=== PATIENT | female | born 1940 | race Caucasian/White ===

== ENCOUNTER 2018-04-22 21:24 | Inpatient (IN) | END 2018-04-24 18:58 | disposition home or self-care (01) | DRG 342 ==

== ENCOUNTER 2018-11-04 10:59 | Observation (INO) | payer BC ==
[2018-11-04] VITALS (7 sets, daily range): BP systolic 114–148; BP diastolic 55–65; PULSE 61–81; RESP 16–19; Ht 149.9 cm; Wt 50.0 kg
[~2018-11-04] VITALS: Ht 149.9 cm; Wt 50.0 kg
[~2018-11-04 10:59] MED LIST: ALLO100T PO; AMLO-145 PO; ASPI-831 GTB; ASPI-903 PO; CHOL200073 PO; CHOL4PAC PO; FLUT16SP17 NASAL; GLIM4TAB PO; GLYB1TAB3 PO; HYDR-4011 PO; LABE300T2 PO; LANT3I SC; LEVO88TA36 PO; LIPA1CAP45 PO; LORA10CA; LOSA25TA12 PO; MAGN400T28 PO; METH500T PO; METO-448; OMEP40CA6 PO; SIMV20TA2 PO; SPIR100T4 PO
[2018-11-04] MEDS ORDERED: SOD CHLORIDE 0.9% 500 ML IV STA (11:29)
[2018-11-04] MEDS ORDERED: SPIR25TA PO (11:29)
[2018-11-04] MEDS ORDERED: ATOR10TA65 PO (11:30)
[2018-11-04] MEDS ORDERED: LABE300T2 PO (11:31)
--- NOTE | 2018-11-04 12:47 | ERD ---
ER Documentation Chief Complaint Chief Complaint Pt. BETTY family with c/o syncopal episode today. HPI 78-year-old female presents to the emergency department after passing out. According to the family, patient was in her usual state of health until the last 2 or 3 weeks at which time she had diarrhea. She has begun having weight loss along with the diarrhea and felt dehydrated. Today she felt generally weak and had to hold onto the wall after she was having a bowel movement and then passed out. She had no chest pain or shortness of breath, no headache, focal weakness or numbness. On arrival, she reports no chest pain or shortness of breath at this time. ROS All systems reviewed and are negative except as per history of present illness. Medications Home Meds Reported Medications Labetalol Hcl* (Labetalol Hcl*) 300 Mg Tablet, 300 MG PO BID, TAB 11/04/18 Atorvastatin Calcium (Atorvastatin Calcium) 10 Mg Tablet, 10 MG PO QHS, #30 TAB 11/04/18 Spironolactone* (Aldactone*) 25 Mg Tablet, 25 MG PO DAILY, #30 TAB 11/04/18 Peqyum-Qqeayklm-Zedcnjo* (Fabian DR* 36,000) 36,000 L-114,000-180,000 Unit Capsule.dr, 1 CAP PO WITH MEALS, CAP 04/23/18 Allopurinol* (Allopurinol*) 100 Mg Tablet, 100 MG PO DAILY, TAB 04/23/18 Cholecalciferol (Vitamin D3) (VITAMIN D-3) 2,000 Unit Capsule, 2000 UNIT PO DAILY, CAP 04/23/18 Losartan Potassium* (Losartan Potassium*) 25 Mg Tablet, 25 MG PO BID, TAB 04/23/18 Glimepiride* (Glimepiride*) 4 Mg Tablet, 4 MG PO WITH BREAKFAST DINNE, TAB 04/23/18 Fluticasone Propionate* (Fluticasone Propionate* Nasal) 50 Mcg/Quebeck - 16 Gm [place].susp, 1 SPRAY NASAL DAILY, #1 BOTTLE TO EACH NOSTRIL 04/23/18 Magnesium Oxide* (Magnesium Oxide*) 400 Mg Tablet, 800 MG PO DAILY, TAB 04/23/18 Omeprazole* (Omeprazole*) 40 Mg Capsule.dr, 40 MG PO DAILY, #30 CAP 04/23/18 Insulin Glargine* (Lantus*) 100 Unit/Ml Soln, 10 UNIT SC QHS, #1 VIAL 04/22/18 Aspirin (Aspirin) 81 Mg Chew, 81 MG GTB DAILY 01/31/13 Discontinued Reported Medications Spironolactone* (Spironolactone*) 100 Mg Tablet, 25 MG PO DAILY, TAB 04/23/18 Cholestyramine/Aspartame (Cholestyramine Light Packet) 4 Gm Powd.pack, 4 GM PO BID 04/23/18 Labetalol Hcl* (Labetalol Hcl*) 300 Mg Tablet, 300 MG PO BID, TAB 04/23/18 Aspirin* (Aspirin* Chew) 81 Mg Tab.chew, 81 MG PO DAILY, TAB.CHEW 04/22/18 Loratadine* (Claritin*) 10 Mg Capsule, DAILY 01/31/13 Metoprolol Tartrate* (Lopressor*) 25 Mg Tab, BID 01/31/13 Levothyroxine Sodium (Levothroid) 88 Mcg Tablet, 100 MCG PO DAILY 01/31/13 Glyburide, Micro-Metformin Hcl (Glyburid-Metformin) 1 Tab Tablet, 1 TAB PO BID 01/31/13 Simvastatin (Simvastatin) 20 Mg Tablet, 20 MG PO DAILY 01/31/13 Amlodipine Besylate* (Amlodipine Besylate*) 5 Mg Tablet, 5 MG PO BID 01/31/13 Discontinued Scripts Hydrocodone/Acetaminophen (Foss 5-325 Tablet) 1 Each Tablet, 1 EACH PO Q4 for pain, #30 TAB Prov:LEIGHA MONZON 04/24/18 Methocarbamol* (Robaxin*) 500 Mg Tab, 500 MG PO Q8, #10 TAB Prov:KIAN MOHAMUD DO 11/15/15 Allergies Allergies: Coded Allergies: benazepril (Verified Allergy, Unknown, 11/04/18) felodipine (Verified Allergy, Unknown, 11/04/18) metformin (Verified Allergy, Unknown, 11/04/18) pioglitazone (Verified Allergy, Unknown, 11/04/18) prochlorperazine (Verified Allergy, Unknown, 11/04/18) rosiglitazone (Verified Allergy, Unknown, 11/04/18) sitagliptin (Verified Allergy, Unknown, 11/04/18) valsartan (Verified Allergy, Unknown, 11/04/18) PMhx/Soc History of Surgery: Yes (thyroidectomy 1996, hysterectomy 1978, [place]) Anesthesia Reaction: No Hx Neurological Disorder: No Hx Respiratory Disorders: No Hx Cardiac Disorders: Yes (HTN) Hx Psychiatric Problems: No Hx Miscellaneous Medical Probl: Yes (DM) Hx Alcohol Use: No Hx Substance Use: No Hx Tobacco Use: No Smoking Status: Never smoker FmHx Supportive family at the bedside. Otherwise noncontributory family history Physical Exam Vitals Vital Signs Date Temp Pulse Resp B/P (MAP) Pulse Ox O2 O2 Flow FiO2 Time Delivery Rate 11/04/18 96.8 68 20 111/57 100 Nasal 2.0 12:23 (75) Cannula 11/04/18 96.0 69 22 124/66 100 11:29 (85) Physical Exam GENERAL: Frail, elderly female in no distress HEENT: Pupils equal, round, and reactive to light. EOMI. There is no scleral ic terus. NECK: C-spine is soft and supple, there is no meningismus. There is no cervical lymphadenopathy. LUNGS: Clear to auscultation bilaterally. There are no rales, wheezes or rhonchi. HEART: Regular rate and rhythm, no murmurs, clicks, rubs or gallops. ABDOMEN: Soft, non-tender, non-distended. There are bowel sounds in all four quadrants. No rebound or guarding. EXTREMITIES: There is no peripheral cyanosis or edema. No focal swelling or erythema. NEURO: The patient moves all four extremities with 5/5 strength. Cranial nerves II - XII are intact. Normal gait. Alert and oriented SKIN: There is no apparent rash or petechiae. HEME/LYMPHATIC: There is no evidence of excessive bruising or lymphedema. PSYCHIATRIC: The patient does not appear anxious or depressed. Result Diagram: 11/04/18 1120 11/04/18 1120 Results 24 hrs Laboratory Tests Test 11/04/18 11:20 11/04/18 11:42 White Blood Count 6.1 10^3/ul Red Blood Count 3.77 10^6/ul Hemoglobin 10.9 g/dl Hematocrit 33.1 % Mean Corpuscular Volume 87.8 fl Mean Corpuscular Hemoglobin 28.9 pg Mean Corpuscular Hemoglobin Concent 32.9 g/dl Red Cell Distribution Width 13.5 % Platelet Count 214 10^3/UL Mean Platelet Volume 10.6 fl Immature Granulocytes % 0.200 % Neutrophils % 65.8 % Lymphocytes % 24.8 % Monocytes % 6.1 % Eosinophils % 2.3 % Basophils % 0.8 % Nucleated Red Blood Cells % 0.0 /100WBC Immature Granulocytes # 0.010 10^3/ul Neutrophils # 4.0 10^3/ul Lymphocytes # 1.5 10^3/ul Monocytes # 0.4 10^3/ul Eosinophils # 0.1 10^3/ul Basophils # 0.1 10^3/ul Nucleated Red Blood Cells # 0.0 10^3/ul Sodium Level 140 mmol/L Potassium Level 4.4 mmol/L Chloride Level 105 mmol/L Carbon Dioxide Level 24 mmol/L Anion Gap 11 Blood Urea Nitrogen 22 mg/dl Creatinine 1.05 mg/dl Est Glomerular Filtrat Rate mL/min mL/min Glucose Level 234 mg/dl Calcium Level 9.5 mg/dl Troponin I < 0.012 ng/ml Bedside Glucose 277 mg/dL Current Medications Medications Dose Sig/Andrés Start Time Status Last (Trade) Ordered Route PRN Stop Time Admin Dose Reason Admin Sodium 500 ml @ Q1H STAT 11/04/18 DC 11/04/18 Chloride 500 mls/hr IV 11:29 11:38 11/04/18 12:28 Procedures/MDM Patient was taken to a room, seen and evaluated. Comfort measures were initiated. Diagnostic tests were ordered and reviewed. 3 LEAD RHYTHM STRIP: Normal sinus rhythm without ectopy EK lead EKG reviewed by myself: Normal Sinus Rhythm Normal [place] and intervals No ST elevation, depression, or T wave inversion Impression: Normal EKG RADIOLOGY: Reviewed with the radiologist CONSULTATION: Hospitalist was notified for admission REEVALUATION: 1245: Diagnostic tests were appreciated and discussed with the family decision was made to admit for observation MEDICAL DECISION MAKIN-year-old female presents after syncopal episode. Her syncopal episode is likely related to dehydration from the diarrhea as well as her medications. Her EKG and troponin are reassuring. However, given her age and her comorbid conditions, she will be admitted for observation. Departure Diagnosis: Primary Impression: Syncope Condition: JERONIMO Brand Nov 04, 2018 12:47
--- NOTE | 2018-11-04 13:48 | HP ---
Date/Time of Note Date/Time of Note DATE: 11/04/18 TIME: 13:48 Assessment/Plan VTE Prophylaxis Pharmacological prophylaxis: NA/contraindicated Pharm contraindication: other (Remote history of hemorrhagic infarct. Iniatate if her CT scan is negative for any bleeding.) Lines/Catheters [facility] Saline Lock Assessment/Plan Hospital Course 78-year-old female with comorbidities including hypertension, diabetes mellitus type 2, hypothyroidism, anemia, and intracranial hemorrhage. The patient had an unwitnessed syncopal episode at home. The patient will be admitted to inpatient setting for further treatment and evaluation. 1. Syncope. -Etiology unclear. -Obtain a brain CT scan to evaluate for any underlying structural findings specifically any bleed since the patient has a remote history of intracranial bleeding and the patient was on aspirin. -Obtain orthostatic vital signs. -Evaluate for cardiac causes including ruling out ACS and obtain a 2D echocardiogram with bubble study.. -Obtain orthostatic vital signs. -Hold antihypertensives for permissive hypertension until stroke is ruled out. 2. Essential hypertension. -Hold antihypertensives until stroke is ruled out. 3. Diabetes mellitus type 2. -Obtain hemoglobin A1c. -Start the patient on sliding scale insulin along with pre-meal insulin and basal insulin. 4. Hypothyroidism. -Resume Synthroid. 5. Normocytic anemia. -Most probably anemia of chronic disease -Monitor H&H closely. Plan: The patient will be admitted to inpatient telemetry floor. The patient will be started on a diet. The patient will be started on DVT prophylaxis (B/L SCDs). The patient will remain a full code. Activities will be with assist. The rest of the patient's management will be based on the clinical course, inputs from consultants, and the results of diagnostic studies. Based on the patient's clinical presentation, she most probably requires at le ast 1 midnight's stay for further management and evaluation of her clinical presentation. The patient was seen in collaboration with Dr. Heredia. Result Diagram: 11/04/18 1120 11/04/18 1120 Results 24hrs Laboratory Tests Test 11/04/18 11:20 11/04/18 11:42 White Blood Count 6.1 Red Blood Count 3.77 L Hemoglobin 10.9 L Hematocrit 33.1 L Mean Corpuscular Volume 87.8 Mean Corpuscular Hemoglobin 28.9 L Mean Corpuscular Hemoglobin Concent 32.9 Red Cell Distribution Width 13.5 Platelet Count 214 Mean Platelet Volume 10.6 H Immature Granulocytes % 0.200 Neutrophils % 65.8 Lymphocytes % 24.8 Monocytes % 6.1 Eosinophils % 2.3 Basophils % 0.8 Nucleated Red Blood Cells % 0.0 Immature Granulocytes # 0.010 Neutrophils # 4.0 Lymphocytes # 1.5 Monocytes # 0.4 Eosinophils # 0.1 Basophils # 0.1 Nucleated Red Blood Cells # 0.0 Sodium Level 140 Potassium Level 4.4 Chloride Level 105 Carbon Dioxide Level 24 Anion Gap 11 Blood Urea Nitrogen 22 H Creatinine 1.05 H Est Glomerular Filtrat Rate mL/min Glucose Level 234 H Calcium Level 9.5 Troponin I < 0.012 Bedside Glucose 277 H HPI/ROS Admit Date/Time Admit Date/Time Nov 04, 2018 at 12:48 Hx of Present Illness Reason for admission: Syncope. Consultants 1 Valerie Cee MD, Neurology. This is a 78-year-old female with past medical history of hypertension, diabetes mellitus type 2, hypothyroidism, anemia, and intracranial hemorrhage in 2011. The patient was in her normal state of health as per the family. Patient took her morning medications and suddenly she felt dizzy. The patient also verbalized visual disturbances. Later she remembers her lying down on the floor. The family member (the patient's ) found her lying on the floor trying to crawl to the restroom covered in feces. There was no reported foaming in the mouth or seizure-like activities. The patient denied any obvious injuries although she was complaining of bilateral pulsating headache in the temporal area. As per the patient's family member, she broke the coffee table because of the fall. The patient's family members found the patient to be cold and clammy and sweating. The patient was complaining of chills. There was also reported nonbilious nonbloody vomiting. The patient denied any abdominal pain. She denied any chest pain or dyspnea. In the emergency room, the patient's vital signs were stable. The patient's blood sugar in the emergency room was 234. The patient was hypothermic with a temperature of 96 in the emergency room. ROS Constitutional: chills Eyes: visual change ENT: no complaints Respiratory: no complaints Cardiovascular: no complaints Gastrointestinal: diarrhea, nausea, vomiting Genitourinary: no complaints Musculoskeletal: no complaints Skin: no complaints Neurologic: headache, other (Pulsations on both sides of the head.) Endocrine: no complaints Lymphatic: no complaints Psychological: no complaints Immunologic: no complaints PMH/Family/Social Past Medical History 1. Hypertension. 2. Diabetes mellitus type 2. 3. Hypothyroidism. 4. Anemia. 5. Intracranial hemorrhage in 2011. Coded Allergies: benazepril (Verified Allergy, Unknown, 11/04/18) felodipine (Verified Allergy, Unknown, 11/04/18) metformin (Verified Allergy, Unknown, 11/04/18) pioglitazone (Verified Allergy, Unknown, 11/04/18) prochlorperazine (Verified Allergy, Unknown, 11/04/18) rosiglitazone (Verified Allergy, Unknown, 11/04/18) sitagliptin (Verified Allergy, Unknown, 11/04/18) valsartan (Verified Allergy, Unknown, 11/04/18) Past Surgical History 1. Appendectomy. 2. Thyroidectomy. 3. Hysterectomy. Past Surgical Hx: other Family History Significant Family History: no pertinent family hx Social History The patient lives at home with her family. Alcohol Use: none Smoking Status: Never smoker Drug Use: none Exam/Review of Systems Vital Signs Vitals Vital Signs Date Temp Pulse Resp B/P (MAP) Pulse Ox O2 O2 Flow FiO2 Time Delivery Rate 11/04/18 65 20 113/59 100 Nasal 2.0 13:25 (77) Cannula 11/04/18 96.8 12:23 Exam Exam General: Adequately build 78 year-old female lying in bed in no apparent distress. HEENT: Normocephalic, atraumatic. Eyes: Anicteric sclerae, conjunctivae clear. ENT: Nasal septum midline, oral mucosa is dry. Neck supple, no JVD noticed. Respiratory: Bilaterally clear breath sounds. No use of accessory muscles of respiration. No adventitious breath sounds. Cardiovascular: S1, S2 heard. Regular rate and rhythm. Abdomen: Soft, nontender, and nondistended. Bowel sounds positive in all 4 quadrants. Genitourinary: Deferred. Extremities: No cyanosis, no clubbing, no edema. Peripheral pulses palpable. Neurologic: Cranial nerves II through XII grossly intact. The patient is awake, alert, and oriented. Equal strength in all 4 extremities. No slurred speech. No facial asymmetry. Skin: Normal skin turgor. No skin rashes. Additional Comments CXR IMPRESSION: 1. No evidence of acute cardiopulmonary disease. LAWRENCE LEVI NP Nov 04, 2018 13:48
[2018-11-04] MEDS ORDERED: GLUCOSE GEL 15 GRAM TUBE PO PRN ×2 (14:30)
[2018-11-04] MEDS ORDERED: NACL 0.9% 3 ML SYG IV SCH (14:30)
[2018-11-04] MEDS ORDERED: ACETAMINOPHEN 325 MG TAB PO PRN (14:30)
[2018-11-04] MEDS ORDERED: DEXTROSE 50% 50 ML SYRINGE IV PRN ×2 (14:30)
[2018-11-04] MEDS ORDERED: ONDANSETRON 4 MG INJ IV PRN (14:30)
[2018-11-04] MEDS ORDERED: GLUCAGON 1 MG INJ IM PRN (14:30)
[2018-11-04] MEDS ORDERED: GLUCOSE GEL 15 GRAM TUBE BUCCAL PRN (14:30)
[2018-11-04] MEDS: INSULIN ASPART [NOVOLOG] 3 ML PEN SC SCH ×3 (18:21→20:44)
[2018-11-04] MEDS: ATORVASTATIN 10 MG TAB PO SCH (20:43)
[2018-11-04] MEDS: INSULIN GLARGINE [LANTus] (100 UNITS/ML) SYG SC SCH ×2 (20:45→21:41)
[2018-11-05] VITALS (14 sets, daily range): BP systolic 106–143; BP diastolic 55–68; PULSE 64–80; RESP 17–18
[2018-11-05] MEDS: INSULIN ASPART [NOVOLOG] 3 ML PEN SC SCH ×7 (08:00→20:06)
[2018-11-05] MEDS: CHOLECALCIFEROL 2,000 UNIT CAP PO SCH (08:26)
[2018-11-05] MEDS: FLUTICASONE 0.05% 16 GM NAS SPRAY NASAL SCH (08:26)
--- NOTE | 2018-11-05 08:57 | CONS ---
Assessment/Plan Assessment/Plan Hospital Course 78 F c/ reported Hx of prior ICH, HTN, and other comorbidities...who presents for evaluation of transient LOC w/ fecal incontinence...for which neurology is consulted.. The clinical picture raises concern for syncope.. Seizure is additionally considered... Acute ischemia is not yet excluded.. CTH is most notable for a chronic occipital infarction...which could certainly serve as a seizure focus.. CUS/CXR - unremarkable P: MRI brain for further characterization EEG to evaluation for epileptiform activity Orthostatic vitals Add UA Defer AED Tx for now Ativan iv prn prolonged seizure of cluster Continue Lipitor for secondary stroke prevention; resume asa daily for the same.. Other medical workup and management per primary Will follow Consultation Date/Type/Reason Admit Date/Time Nov 04, 2018 at 12:48 Type of Consult Neurology Reason for Consultation LOC w/ fecal incontinence Requesting Provider: LAWRENCE LEVI NP Date/Time of Note DATE: 11/05/18 TIME: 08:48 Hx of Present Illness This is a 78-year-old female with past medical history of hypertension, diabetes mellitus type 2, hypothyroidism, anemia, and intracranial hemorrhage in 2011. The patient was in her normal state of health as per the family. Patient took her morning medications and suddenly she felt dizzy. The patient also verbalized visual disturbances. Later she remembers her lying down on the floor. The family member (the patient's ) found her lying on the floor trying to crawl to the restroom covered in feces. There was no reported foaming in the mouth or seizure-like activities. The patient denied any obvious injuries although she was complaining of bilateral pulsating headache in the temporal area. As per the patient's family member, she broke the coffee table because of the fall. The patient's family members found the patient to be cold and clammy and sweating. The patient was complaining of chills. There was also reported nonbilious nonbloody vomiting. The patient denied any abdominal pain. She denied any chest pain or dyspnea. In the emergency room, the patient's vital signs were stable. The patient's blood sugar in the emergency room was 234. The patient was hypothermic with a temperature of 96 in the emergency room. 12 PT ROS neg, aside from that as noted in HPI Exam/Review of Systems Exam Vitals Vital Signs Date Temp Pulse Resp B/P (MAP) Pulse Ox O2 O2 Flow FiO2 Time Delivery Rate 11/05/18 98.4 67 18 120/58 96 07:17 (78) 11/05/18 Nasal 03:53 Cannula 11/04/18 2.0 20:10 Intake and Output 11/04/18 11/04/18 11/05/18 1515:00 23:00 07:00 IntakeIntake Total 300 ml BalanceBalance 300 ml Exam PE: Gen Appearance: No Apparent Distress HEENT: Normocephalic Cardiovascular: Regular rate Abdomen: Soft Extremities: Dry NE: The patient was alert and oriented. Language was normal. Fund of knowledge was normal. Pupils were equal and reactive to light. There was no afferent pupillary defect. Visual yancey were normal. Funduscopic examination was limited. Extra-ocular movements were full. Ptosis was absent. There was no nystagmus. Facial sensation was normal. Face was symmetric with normal strength. Hearing was intact. Palate movements were normal. Neck strength was normal. There was normal tongue bulk and speed of movement. Tone was normal. Muscle bulk was normal. I did not see fasciculations. Arms and legs were strong. Vibration sensation was normal. Temperature and pinprick sensation was normal. Rapid alternating movements were normal. There was no dysmetria. There was no intention tremor. Gait was deferred due to bedrest. Arm and leg reflexes were symmetric. Ann's sign was absent. Plantar responses were flexor. Results Result Diagram: 11/05/188 11/05/18 0408 Results 24hrs Laboratory Tests Test 11/04/18 11:20 11/04/18 11:42 11/04/18 14:07 11/04/18 16:06 White Blood Count 6.1 Red Blood Count 3.77 L Hemoglobin 10.9 L Hematocrit 33.1 L Mean Corpuscular 87.8 Volume Mean Corpuscular 28.9 L Hemoglobin Mean Corpuscular 32.9 Hemoglobin Concent Red Cell 13.5 Distribution Width Platelet Count 214 Mean Platelet Volume 10.6 H Immature 0.200 Granulocytes % Neutrophils % 65.8 Lymphocytes % 24.8 Monocytes % 6.1 Eosinophils % 2.3 Basophils % 0.8 Nucleated Red Blood 0.0 Cells % Immature 0.010 Granulocytes # Neutrophils # 4.0 Lymphocytes # 1.5 Monocytes # 0.4 Eosinophils # 0.1 Basophils # 0.1 Nucleated Red Blood 0.0 Cells # Sodium Level 140 Potassium Level 4.4 Chloride Level 105 Carbon Dioxide Level 24 Anion Gap 11 Blood Urea Nitrogen 22 H Creatinine 1.05 H Est Glomerular Filtrat Rate mL/min Glucose Level 234 H Hemoglobin A1c 7.0 H Calcium Level 9.5 Troponin I < 0.012 < 0.012 B-Type Natriuretic 164 Peptide Ethyl Alcohol Level < 10.0 H Bedside Glucose 277 H Thyroid Stimulating 0.046 L Hormone (TSH) Free Thyroxine 2.38 Creatine Kinase 52 Creatine Kinase 1.8 Index Creatinine Kinase MB 0.92 (Mass) Test 11/04/18 16:55 11/04/18 17:30 11/04/18 19:52 11/04/18 20:42 Bedside Glucose 165 71 96 Urine Opiates Screen Negative Urine Barbiturates Negative Urine Amphetamines Negative Screen Urine Negative Benzodiazepines Screen Urine Cocaine Screen Negative Urine Cannabinoids Negative Test 11/04/18 21:59 11/05/18 04:08 11/05/18 08:04 Creatine Kinase 50 41 Creatine Kinase 1.2 1.5 Index Creatinine Kinase MB 0.61 0.60 (Mass) Troponin I < 0.012 < 0.012 White Blood Count 4.8 # Red Blood Count 3.39 L Hemoglobin 9.9 L Hematocrit 30.0 L Mean Corpuscular 88.5 Volume Mean Corpuscular 29.2 Hemoglobin Mean Corpuscular 33.0 Hemoglobin Concent Red Cell 13.5 Distribution Width Platelet Count 187 Mean Platelet Volume 10.0 Immature 0.000 L Granulocytes % Neutrophils % 55.9 Lymphocytes % 33.1 Monocytes % 7.5 Eosinophils % 2.7 Basophils % 0.8 Nucleated Red Blood 0.0 Cells % Immature 0.000 Granulocytes # Neutrophils # 2.7 Lymphocytes # 1.6 Monocytes # 0.4 Eosinophils # 0.1 Basophils # 0.0 Nucleated Red Blood 0.0 Cells # Prothrombin Time 13.5 Prothrombin Time 1.1 Ratio INR International 1.02 Normalized Ratio Activated 30.8 Partial Thromboplast Time Sodium Level 143 Potassium Level 4.5 Chloride Level 108 Carbon Dioxide Level 27 Anion Gap 8 Blood Urea Nitrogen 19 Creatinine 0.82 Est Glomerular Filtrat Rate mL/min Glucose Level 89 # Calcium Level 9.3 Phosphorus Level 5.0 H Magnesium Level 1.7 Triglycerides Level 169 H Cholesterol Level 106 LDL Cholesterol, 48 Calculated HDL Cholesterol 24 L Cholesterol/HDL 4.4 Ratio Bedside Glucose 97 Medications Medication Current Medications IV Flush (NS 3 ml) 3 ml PER PROTOCOL IV ; Start 11/04/18 at 14:30 Ondansetron HCl (Zofran Inj) 4 mg Q6H PRN IV NAUSEA/VOMITING; Start 11/04/18 at 14:30 Acetaminophen (Tylenol Tab) 650 mg Q6H PRN PO .PAIN 1-3 OR TEMP; Start 11/04/18 at 14:30 Atorvastatin Calcium (Lipitor) 10 mg QHS PO Last administered on 11/04/18 20:43; Admin Dose 10 MG; Start 11/04/18 at 21:00 Cholecalciferol (Vitamin D) 2,000 unit DAILY PO Last administered on 11/05/18 08:26; Admin Dose 2,000 UNIT; Start 11/05/18 at 09:00 Fluticasone Propionate (Flonase 0.05% Nasal) 1 spray DAILY NASAL Last administered on 11/05/18 08:26; Admin Dose 1 SPRAY; Start 11/05/18 at 09:00 Insulin Glargine (Lantus) 10 units QHS SC Last administered on 11/04/18 21:41; Admin Dose 10 UNITS; Start 11/04/18 at 21:00 Insulin Aspart (Novolog Insulin Pen) 3 unit WITH MEALS SC Last administered on 11/05/18 08:27; Admin Dose 3 UNIT; Start 11/04/18 at 18:00 Insulin Aspart (Novolog Insulin Pen) NOVOLOG *MILD* ALGORITHM WITH MEALS BEDTIME SC Last administered on 11/04/18at 18:24; Admin Dose 1 UNIT; Start 11/04/18 at 18:00 Miscellaneous Information 1 ea NOTE XX ; Start 11/04/18 at 14:30 Glucose (Glutose) 15 gm Q15M PRN PO DECREASED GLUCOSE; Start 11/04/18 at 14:30 Glucose (Glutose) 22.5 gm Q15M PRN PO DECREASED GLUCOSE; Start 11/04/18 at 14:30 Dextrose (D50w Syringe) 25 ml Q15M PRN IV DECREASED GLUCOSE; Start 11/04/18 at 14:30 Dextrose (D50w Syringe) 50 ml Q15M PRN IV DECREASED GLUCOSE; Start 11/04/18 at 14:30 Glucagon (Glucagen) 1 mg Q15M PRN IM DECREASED GLUCOSE; Start 11/04/18 at 14:30 Glucose (Glutose) 15 gm Q15M PRN BUCCAL DECREASED GLUCOSE; Start 11/04/18 at 14:30 Past Medical History reviewed Home Meds Reported Medications Labetalol Hcl* (Labetalol Hcl*) 300 Mg Tablet, 300 MG PO BID, TAB 11/04/18 Atorvastatin Calcium (Atorvastatin Calcium) 10 Mg Tablet, 10 MG PO QHS, #30 TAB 11/04/18 Spironolactone* (Aldactone*) 25 Mg Tablet, 25 MG PO DAILY, #30 TAB 11/04/18 Oxxnou-Stguudeg-Kmjqvvm* (Fabian SUMMERS* 36,000) 36,000 L-114,000-180,000 Unit Capsule.dr, 1 CAP PO WITH MEALS, CAP 04/23/18 Allopurinol* (Allopurinol*) 100 Mg Tablet, 100 MG PO DAILY, TAB 04/23/18 Cholecalciferol (Vitamin D3) (VITAMIN D-3) 2,000 Unit Capsule, 2000 UNIT PO DAILY, CAP 04/23/18 Losartan Potassium* (Losartan Potassium*) 25 Mg Tablet, 25 MG PO BID, TAB 04/23/18 Glimepiride* (Glimepiride*) 4 Mg Tablet, 4 MG PO WITH BREAKFAST DINNE, TAB 04/23/18 Fluticasone Propionate* (Fluticasone Propionate* Nasal) 50 Mcg/[place] - 16 Gm [place].susp, 1 SPRAY NASAL DAILY, #1 BOTTLE TO EACH NOSTRIL 04/23/18 Magnesium Oxide* (Magnesium Oxide*) 400 Mg Tablet, 800 MG PO DAILY, TAB 04/23/18 Omeprazole* (Omeprazole*) 40 Mg Capsule.dr, 40 MG PO DAILY, #30 CAP 04/23/18 Insulin Glargine* (Lantus*) 100 Unit/Ml Soln, 10 UNIT SC QHS, #1 VIAL 04/22/18 Aspirin (Aspirin) 81 Mg Chew, 81 MG GTB DAILY 01/31/13 Discontinued Reported Medications Spironolactone* (Spironolactone*) 100 Mg Tablet, 25 MG PO DAILY, TAB 04/23/18 Cholestyramine/Aspartame (Cholestyramine Light Packet) 4 Gm Powd.pack, 4 GM PO BID 04/23/18 Labetalol Hcl* (Labetalol Hcl*) 300 Mg Tablet, 300 MG PO BID, TAB 04/23/18 Aspirin* (Aspirin* Chew) 81 Mg Tab.chew, 81 MG PO DAILY, TAB.CHEW 04/22/18 Loratadine* (Claritin*) 10 Mg Capsule, DAILY 01/31/13 Metoprolol Tartrate* (Lopressor*) 25 Mg Tab, BID 01/31/13 Levothyroxine Sodium (Levothroid) 88 Mcg Tablet, 100 MCG PO DAILY 01/31/13 Glyburide, Micro-Metformin Hcl (Glyburid-Metformin) 1 Tab Tablet, 1 TAB PO BID 01/31/13 Simvastatin (Simvastatin) 20 Mg Tablet, 20 MG PO DAILY 01/31/13 Amlodipine Besylate* (Amlodipine Besylate*) 5 Mg Tablet, 5 MG PO BID 01/31/13 Discontinued Scripts Hydrocodone/Acetaminophen ([place] 5-325 Tablet) 1 Each Tablet, 1 EACH PO Q4 for pain, #30 TAB Prov:LEIGHA MONZON 04/24/18 Methocarbamol* (Robaxin*) 500 Mg Tab, 500 MG PO Q8, #10 TAB Prov:KIAN MOHAMUD DO 11/15/15 Medications Current Medications IV Flush (NS 3 ml) 3 ml PER PROTOCOL IV ; Start 11/04/18 at 14:30 Ondansetron HCl (Zofran Inj) 4 mg Q6H PRN IV NAUSEA/VOMITING; Start 11/04/18 at 14:30 Acetaminophen (Tylenol Tab) 650 mg Q6H PRN PO .PAIN 1-3 OR TEMP; Start 11/04/18 at 14:30 Atorvastatin Calcium (Lipitor) 10 mg QHS PO Last administered on 11/04/18at 20:43; Admin Dose 10 MG; Start 11/04/18 at 21:00 Cholecalciferol (Vitamin D) 2,000 unit DAILY PO Last administered on 11/05/18at 08:26; Admin Dose 2,000 UNIT; Start 11/05/18 at 09:00 Fluticasone Propionate (Flonase 0.05% Nasal) 1 spray DAILY NASAL Last administered on 11/05/18at 08:26; Admin Dose 1 SPRAY; Start 11/05/18 at 09:00 Insulin Glargine (Lantus) 10 units QHS SC Last administered on 11/04/18at 21:41; Admin Dose 10 UNITS; Start 11/04/18 at 21:00 Insulin Aspart (Novolog Insulin Pen) 3 unit WITH MEALS SC Last administered on 11/05/18at 08:27; Admin Dose 3 UNIT; Start 11/04/18 at 18:00 Insulin Aspart (Novolog Insulin Pen) NOVOLOG *MILD* ALGORITHM WITH MEALS BEDTIME SC Last administered on 11/04/18at 18:24; Admin Dose 1 UNIT; Start 11/04/18 at 18:00 Miscellaneous Information 1 ea NOTE XX ; Start 11/04/18 at 14:30 Glucose (Glutose) 15 gm Q15M PRN PO DECREASED GLUCOSE; Start 11/04/18 at 14:30 Glucose (Glutose) 22.5 gm Q15M PRN PO DECREASED GLUCOSE; Start 11/04/18 at 14:30 Dextrose (D50w Syringe) 25 ml Q15M PRN IV DECREASED GLUCOSE; Start 11/04/18 at 14:30 Dextrose (D50w Syringe) 50 ml Q15M PRN IV DECREASED GLUCOSE; Start 11/04/18 at 14:30 Glucagon (Glucagen) 1 mg Q15M PRN IM DECREASED GLUCOSE; Start 11/04/18 at 14:30 Glucose (Glutose) 15 gm Q15M PRN BUCCAL DECREASED GLUCOSE; Start 11/04/18 at 14:30 Allergies: Coded Allergies: benazepril (Verified Allergy, Unknown, 11/04/18) felodipine (Verified Allergy, Unknown, 11/04/18) metformin (Verified Allergy, Unknown, 11/04/18) pioglitazone (Verified Allergy, Unknown, 11/04/18) prochlorperazine (Verified Allergy, Unknown, 11/04/18) rosiglitazone (Verified Allergy, Unknown, 11/04/18) sitagliptin (Verified Allergy, Unknown, 11/04/18) valsartan (Verified Allergy, Unknown, 11/04/18) Past Surgical History reviewed Past Surgical Hx: other Social History Alcohol Use: none Smoking Status: Never smoker Drug Use: none VÍCTOR SALAS Nov 05, 2018 08:57
--- NOTE | 2018-11-05 10:30 | PN ---
Date/Time of Note Date/Time of Note DATE: 11/05/18 TIME: 10:26 Assessment/Plan VTE Prophylaxis Risk score (from Ns)>0 risk: 4 SCD applied (from Ns): Yes Pharmacological prophylaxis: LMWH Lines/Catheters IV Catheter Type (from [facility]): Saline Lock Assessment/Plan Hospital Course SUBJECTIVE: Denies any complaints. Tolerating oral intake. No nausea or vomiting. No diarrhea. OBJECTIVE: Physical Exam General: Adequately build 78 year-old female lying in bed in no apparent distress. HEENT: Normocephalic, atraumatic. Eyes: Anicteric sclerae, conjunctivae clear. ENT: Nasal septum midline, oral mucosa is dry. Neck supple, no JVD noticed. Respiratory: Bilaterally clear breath sounds. No use of accessory muscles of respiration. No adventitious breath sounds. Cardiovascular: S1, S2 heard. Regular rate and rhythm. Abdomen: Soft, nontender, and nondistended. Bowel sounds positive in all 4 quadrants. Genitourinary: Deferred. Extremities: No cyanosis, no clubbing, no edema. Peripheral pulses palpable. Neurologic: Cranial nerves II through XII grossly intact. The patient is awake, alert, and oriented. Equal strength in all 4 extremities. No slurred speech. No facial asymmetry. Skin: Normal skin turgor. No skin rashes. Labs & Vitals per chart ASSESSMENT & PLAN 78-year-old female with comorbidities including hypertension, diabetes mellitus type 2, hypothyroidism, anemia, and intracranial hemorrhage. The patient had an unwitnessed syncopal episode at home. The patient will be admitted to inpatient setting for further treatment and evaluation. 1. Syncope. -Etiology unclear. -CT scan of the brain negative for any acute findings. Pending brain MRI and el ectroencephalography. -Neurology following. -Obtain orthostatic vital signs. -Pending 2D echocardiogram with bubble study. -Hold antihypertensives for permissive hypertension until stroke is ruled out. 2. Essential hypertension. -Hold antihypertensives until stroke is ruled out. 3. Diabetes mellitus type 2. -Hemoglobin A1c 7.0. -Continue the patient on sliding scale insulin along with pre-meal insulin and basal insulin. 4. Hypothyroidism. -Continue Synthroid. 5. Normocytic anemia. -Most probably anemia of chronic disease -Monitor H&H closely. 6. Fluids, electrolytes, and nutrition. -Carbohydrate controlled diet. 7. DVT prophylaxis. -Subcutaneous Lovenox. 8. Plan. -Continue telemetry monitoring. -Await brain MRI and electroencephalography. -PT evaluation. The patient was seen in collaboration with Dr. Heredia. Result Diagram: 11/05/188 11/05/188 Results 24hrs Laboratory Tests Test 11/04/18 11:20 11/04/18 11:42 11/04/18 14:07 11/04/18 16:06 White Blood Count 6.1 Red Blood Count 3.77 L Hemoglobin 10.9 L Hematocrit 33.1 L Mean Corpuscular 87.8 Volume Mean Corpuscular 28.9 L Hemoglobin Mean Corpuscular 32.9 Hemoglobin Concent Red Cell 13.5 Distribution Width Platelet Count 214 Mean Platelet Volume 10.6 H Immature 0.200 Granulocytes % Neutrophils % 65.8 Lymphocytes % 24.8 Monocytes % 6.1 Eosinophils % 2.3 Basophils % 0.8 Nucleated Red Blood 0.0 Cells % Immature 0.010 Granulocytes # Neutrophils # 4.0 Lymphocytes # 1.5 Monocytes # 0.4 Eosinophils # 0.1 Basophils # 0.1 Nucleated Red Blood 0.0 Cells # Sodium Level 140 Potassium Level 4.4 Chloride Level 105 Carbon Dioxide Level 24 Anion Gap 11 Blood Urea Nitrogen 22 H Creatinine 1.05 H Est Glomerular Filtrat Rate mL/min Glucose Level 234 H Hemoglobin A1c 7.0 H Calcium Level 9.5 Troponin I < 0.012 < 0.012 B-Type Natriuretic 164 Peptide Ethyl Alcohol Level < 10.0 H Bedside Glucose 277 H Thyroid Stimulating 0.046 L Hormone (TSH) Free Thyroxine 2.38 Creatine Kinase 52 Creatine Kinase 1.8 Index Creatinine Kinase MB 0.92 (Mass) Test 11/04/18 16:55 11/04/18 17:30 11/04/18 19:52 11/04/18 20:42 Bedside Glucose 165 71 96 Urine Opiates Screen Negative Urine Barbiturates Negative Urine Amphetamines Negative Screen Urine Negative Benzodiazepines Screen Urine Cocaine Screen Negative Urine Cannabinoids Negative Test 11/04/18 21:59 11/05/18 04:08 11/05/18 08:04 Creatine Kinase 50 41 Creatine Kinase 1.2 1.5 Index Creatinine Kinase MB 0.61 0.60 (Mass) Troponin I < 0.012 < 0.012 White Blood Count 4.8 # Red Blood Count 3.39 L Hemoglobin 9.9 L Hematocrit 30.0 L Mean Corpuscular 88.5 Volume Mean Corpuscular 29.2 Hemoglobin Mean Corpuscular 33.0 Hemoglobin Concent Red Cell 13.5 Distribution Width Platelet Count 187 Mean Platelet Volume 10.0 Immature 0.000 L Granulocytes % Neutrophils % 55.9 Lymphocytes % 33.1 Monocytes % 7.5 Eosinophils % 2.7 Basophils % 0.8 Nucleated Red Blood 0.0 Cells % Immature 0.000 Granulocytes # Neutrophils # 2.7 Lymphocytes # 1.6 Monocytes # 0.4 Eosinophils # 0.1 Basophils # 0.0 Nucleated Red Blood 0.0 Cells # Prothrombin Time 13.5 Prothrombin Time 1.1 Ratio INR International 1.02 Normalized Ratio Activated 30.8 Partial Thromboplast Time Sodium Level 143 Potassium Level 4.5 Chloride Level 108 Carbon Dioxide Level 27 Anion Gap 8 Blood Urea Nitrogen 19 Creatinine 0.82 Est Glomerular Filtrat Rate mL/min Glucose Level 89 # Calcium Level 9.3 Phosphorus Level 5.0 H Magnesium Level 1.7 Triglycerides Level 169 H Cholesterol Level 106 LDL Cholesterol, 48 Calculated HDL Cholesterol 24 L Cholesterol/HDL 4.4 Ratio Bedside Glucose 97 Exam/Review of Systems Exam Vitals Vital Signs Date Temp Pulse Resp B/P (MAP) Pulse Ox O2 O2 Flow FiO2 Time Delivery Rate 11/05/18 69 08:52 11/05/18 98.4 18 120/58 96 07:17 (78) 11/05/18 Nasal 03:53 Cannula 11/04/18 2.0 20:10 Intake and Output 11/04/18 11/04/18 11/05/18 1515:00 23:00 07:00 IntakeIntake Total 300 ml BalanceBalance 300 ml Results Results 24hrs Laboratory Tests Test 11/04/18 11:20 11/04/18 11:42 11/04/18 14:07 11/04/18 16:06 White Blood Count 6.1 Red Blood Count 3.77 L Hemoglobin 10.9 L Hematocrit 33.1 L Mean Corpuscular 87.8 Volume Mean Corpuscular 28.9 L Hemoglobin Mean Corpuscular 32.9 Hemoglobin Concent Red Cell 13.5 Distribution Width Platelet Count 214 Mean Platelet Volume 10.6 H Immature 0.200 Granulocytes % Neutrophils % 65.8 Lymphocytes % 24.8 Monocytes % 6.1 Eosinophils % 2.3 Basophils % 0.8 Nucleated Red Blood 0.0 Cells % Immature 0.010 Granulocytes # Neutrophils # 4.0 Lymphocytes # 1.5 Monocytes # 0.4 Eosinophils # 0.1 Basophils # 0.1 Nucleated Red Blood 0.0 Cells # Sodium Level 140 Potassium Level 4.4 Chloride Level 105 Carbon Dioxide Level 24 Anion Gap 11 Blood Urea Nitrogen 22 H Creatinine 1.05 H Est Glomerular Filtrat Rate mL/min Glucose Level 234 H Hemoglobin A1c 7.0 H Calcium Level 9.5 Troponin I < 0.012 < 0.012 B-Type Natriuretic 164 Peptide Ethyl Alcohol Level < 10.0 H Bedside Glucose 277 H Thyroid Stimulating 0.046 L Hormone (TSH) Free Thyroxine 2.38 Creatine Kinase 52 Creatine Kinase 1.8 Index Creatinine Kinase MB 0.92 (Mass) Test 11/04/18 16:55 11/04/18 17:30 11/04/18 19:52 11/04/18 20:42 Bedside Glucose 165 71 96 Urine Opiates Screen Negative Urine Barbiturates Negative Urine Amphetamines Negative Screen Urine Negative Benzodiazepines Screen Urine Cocaine Screen Negative Urine Cannabinoids Negative Test 11/04/18 21:59 11/05/18 04:08 11/05/18 08:04 Creatine Kinase 50 41 Creatine Kinase 1.2 1.5 Index Creatinine Kinase MB 0.61 0.60 (Mass) Troponin I < 0.012 < 0.012 White Blood Count 4.8 # Red Blood Count 3.39 L Hemoglobin 9.9 L Hematocrit 30.0 L Mean Corpuscular 88.5 Volume Mean Corpuscular 29.2 Hemoglobin Mean Corpuscular 33.0 Hemoglobin Concent Red Cell 13.5 Distribution Width Platelet Count 187 Mean Platelet Volume 10.0 Immature 0.000 L Granulocytes % Neutrophils % 55.9 Lymphocytes % 33.1 Monocytes % 7.5 Eosinophils % 2.7 Basophils % 0.8 Nucleated Red Blood 0.0 Cells % Immature 0.000 Granulocytes # Neutrophils # 2.7 Lymphocytes # 1.6 Monocytes # 0.4 Eosinophils # 0.1 Basophils # 0.0 Nucleated Red Blood 0.0 Cells # Prothrombin Time 13.5 Prothrombin Time 1.1 Ratio INR International 1.02 Normalized Ratio Activated 30.8 Partial Thromboplast Time Sodium Level 143 Potassium Level 4.5 Chloride Level 108 Carbon Dioxide Level 27 Anion Gap 8 Blood Urea Nitrogen 19 Creatinine 0.82 Est Glomerular Filtrat Rate mL/min Glucose Level 89 # Calcium Level 9.3 Phosphorus Level 5.0 H Magnesium Level 1.7 Triglycerides Level 169 H Cholesterol Level 106 LDL Cholesterol, 48 Calculated HDL Cholesterol 24 L Cholesterol/HDL 4.4 Ratio Bedside Glucose 97 Medications Medication Current Medications IV Flush (NS 3 ml) 3 ml PER PROTOCOL IV ; Start 11/04/18 at 14:30 Ondansetron HCl (Zofran Inj) 4 mg Q6H PRN IV NAUSEA/VOMITING; Start 11/04/18 at 14:30 Acetaminophen (Tylenol Tab) 650 mg Q6H PRN PO .PAIN 1-3 OR TEMP; Start 11/04/18 at 14:30 Atorvastatin Calcium (Lipitor) 10 mg QHS PO Last administered on 11/04/18 20:43; Admin Dose 10 MG; Start 11/04/18 at 21:00 Cholecalciferol (Vitamin D) 2,000 unit DAILY PO Last administered on 11/05/18 08:26; Admin Dose 2,000 UNIT; Start 11/05/18 at 09:00 Fluticasone Propionate (Flonase 0.05% Nasal) 1 spray DAILY NASAL Last administered on 11/05/18 08:26; Admin Dose 1 SPRAY; Start 11/05/18 at 09:00 Insulin Glargine (Lantus) 10 units QHS SC Last administered on 11/04/18 21:41; Admin Dose 10 UNITS; Start 11/04/18 at 21:00 Insulin Aspart (Novolog Insulin Pen) 3 unit WITH MEALS SC Last administered on 11/05/18 08:27; Admin Dose 3 UNIT; Start 11/04/18 at 18:00 Insulin Aspart (Novolog Insulin Pen) NOVOLOG *MILD* ALGORITHM WITH MEALS BEDTIME SC Last administered on 11/04/18 18:24; Admin Dose 1 UNIT; Start 11/04/18 at 18:00 Miscellaneous Information 1 ea NOTE XX ; Start 11/04/18 at 14:30 Glucose (Glutose) 15 gm Q15M PRN PO DECREASED GLUCOSE; Start 11/04/18 at 14:30 Glucose (Glutose) 22.5 gm Q15M PRN PO DECREASED GLUCOSE; Start 11/04/18 at 14:30 Dextrose (D50w Syringe) 25 ml Q15M PRN IV DECREASED GLUCOSE; Start 11/04/18 at 14:30 Dextrose (D50w Syringe) 50 ml Q15M PRN IV DECREASED GLUCOSE; Start 11/04/18 at 14:30 Glucagon (Glucagen) 1 mg Q15M PRN IM DECREASED GLUCOSE; Start 11/04/18 at 14:30 Glucose (Glutose) 15 gm Q15M PRN BUCCAL DECREASED GLUCOSE; Start 11/04/18 at 14:30 Aspirin (Halfprin) 81 mg DAILY PO ; Start 11/05/18 at 09:00 LAWRENCE LEVI NP Nov 05, 2018 10:30
[2018-11-05] MEDS: ASPIRIN (EC) 81 MG TAB PO SCH (12:18)
--- NOTE | 2018-11-05 13:01 | RADRPT ---
Echocardiogram Report Patient Name: Wilmer RILEY ID: [id number] : 1940 (78y 5m)Study Date: 11/05/2018 7:49:10 AM Gender: FAccession #: [id number] Tech: EVER Location: Ref.Physician: LAWRENCE LEVI Height(Cm): BSA: Weight(Kg): Quality: GoodAccount #: Procedures: Echocardiographic Report: Transthoracic echocardiogram with complete 2D, M-Mode, and doppler examination. Indications: Syncope. Measurements: 2D/M Mode Doppler Measurement Value Normal Range Measurement Value Normal Range LVIDd 2D 4.0 [ 3.8 - 5.2 ] cm NISHI Vmax 2.1 [ 2.0 - 4.0 ] cm2 LVIDs 2D 2.7 [ 2.2 - 3.5 ] cm AV Mean Raymundo 0.9 [ 70.0 - 90.0 ] cm/sec LVPWd 2D 1.1 [ 0.6 - 0.9 ] cm AV Mean PG 3.0 [ 2.0 - 4.0 ] mmHg IVSd 2D 1.0 [ 0.6 - 0.9 ] cm AV Peak Raymundo 1.3 [ 100.0 - 170.0 ] cm/sec IVS/LVPW 2D 0.9 ratio AV Peak PG 6.0 [ 2.0 - 9.0 ] mmHg ESV 2D 60.0 [ 14.0 - 42.0 ] ml AV VTI 26.5 cm LVOT Diam 1.9 [ 2.1 - 2.5 ] cm LVOT Peak Raymundo 0.9 [ 70.0 - 110.0 ] cm/sec LVOT Area 2.8 cm2 LVOT Peak PG 4.0 [ 2.0 - 6.0 ] mmHg MV E Peak Raymundo 0.7 [ 60.0 - 130.0 ] cm/sec MV A Peak Raymundo 1.0 [ 100.0 - 120.0 ] cm/sec MV E/A 0.7 [ 0.8 - 1.5 ] ratio MV Decel Time 327 [ 104 - 258 ] msec Lat E` Raymundo 0.1 [ 10.0 - 15.0 ] cm/sec Med E` Raymundo 0.0 cm/sec MV E/A 0.7 [ 0.8 - 1.5 ] ratio TR Peak Raymundo 2.6 [ 100.0 - 280.0 ] cm/sec TR Peak PG 27.0 mmHg PV Peak Raymundo 0.7 [ 40.0 - 80.0 ] cm/sec PV Peak PG 2.0 mmHg RVSP 30.0 [ 10.0 - 36.0 ] mmHg RA Pressure 3.0 mmHg Findings: Left Ventricle: Normal left ventricular systolic function. Normal left ventricular cavity size. Normal left ventricular wall thickness. Ejection fraction is visually estimated at 60 %. Tissue Doppler/Mitral Doppler indices are consistent with impaired relaxation (Stage I diastolic dysfunction). Right Ventricle: Normal right ventricular size. Normal right ventricular systolic function. Left Atrium: There is mild enlargement of left atrium. Right Atrium: The right atrium is normal in size. Atrial Septum: Normal atrial septum. Bubble study was performed with and with out valsalva indicating no evidence of intra atrial shunt. Mitral Valve: Normal appearance and function of the mitral valve with trace physiologic regurgitation. Aortic Valve: Normal appearance of the aortic valve. No significant aortic stenosis or insufficiency. Tricuspid Valve: Normal appearance of the tricuspid valve. Right ventricular systolic pressure is consistent with mild pulmonary hypertension. Estimated peak PA systolic pressure 30 mmHg. There is trace to mild tricuspid regurgitation. Pulmonic Valve: Pulmonic valve not well visualized. Pericardium: Normal pericardium with no significant pericardial effusion. No pleural effusion noted. Aorta: Normal aortic root. IVC: Normal size and normal respiratory collapse consistent with normal right atrial pressure. Conclusions: Normal left ventricular systolic function. Normal left ventricular cavity size. Normal left ventricular wall thickness. Ejection fraction is visually estimated at 60 %. Tissue Doppler/Mitral Doppler indices are consistent with impaired relaxation (Stage I diastolic dysfunction). Normal atrial septum. Bubble study was performed with and with out valsalva indicating no evidence of intra atrial shunt. No significant valvular stenosis or regurgitation seen. Estimated peak PA systolic pressure 30 mmHg. Normal size and normal respiratory collapse consistent with normal right atrial pressure. Electronically Signed By: Adonis Arthur 2018-11-05 13:00:09 PST
[2018-11-05] MEDS: ATORVASTATIN 10 MG TAB PO SCH (20:06)
[2018-11-05] MEDS: INSULIN GLARGINE [LANTus] (100 UNITS/ML) SYG SC SCH (20:18)
[2018-11-06] VITALS (11 sets, daily range): BP systolic 123–143; BP diastolic 60–68; PULSE 63–76; RESP 18
--- NOTE | 2018-11-06 07:48 | EEG ---
EEG NOTE Report Details DATE OF TEST: 11/05/18 HISTORY: The patient is a 78-year-old F who presents with LOC. This EEG is requested to evaluate for an epileptic disorder. SEDATION: None. CONDITIONS OF RECORDING: This EEG was recorded digitally on the ADART[employer] machine, using the International 10-20 System of electrodes plus anterior temporals and [place]. STATES SAMPLED: Wakefulness and drowsiness. FINDINGS: During wakefulness, there is a 9 Hz posterior dominant rhythm, which attenuates normally with eye opening. There is a normal [id number]-tu-cotwdmiip frequency-amplitude gradient. The remainder of the awake background is normal. Photic stimulation does not elicit any definite driving responses or epileptiform discharges. Hyperventilation was not performed. The patient became drowsy but did not pass into sleep. No asymmetries, focal abnormalities or epileptiform discharges were seen. IMPRESSION: Normal electroencephalogram during wakefulness and drowsiness. VÍCTOR SALAS Nov 06, 2018 07:48
[2018-11-06] MEDS: INSULIN ASPART [NOVOLOG] 3 ML PEN SC SCH ×6 (08:00→17:38)
[2018-11-06] MEDS: CHOLECALCIFEROL 2,000 UNIT CAP PO SCH (08:28)
[2018-11-06] MEDS: FLUTICASONE 0.05% 16 GM NAS SPRAY NASAL SCH (08:28)
[2018-11-06] MEDS: ASPIRIN (EC) 81 MG TAB PO SCH (08:28)
[2018-11-06] MEDS ORDERED: ENOXAPARIN 30 MG/0.3 ML SYG SC SCH (09:00)
[2018-11-06] MEDS ORDERED: MAGNESIUM SULFATE 2 GM/50 ML 50 ML IVPB ONE (11:00)
[2018-11-06] MEDS ORDERED: NOVO3I SC ×2 (14:53→17:03)
--- NOTE | 2018-11-06 16:54 | CONS ---
Assessment/Plan Assessment/Plan Hospital Course 78 F c/ reported Hx of prior ICH, HTN, and other comorbidities...who presents for evaluation of transient LOC w/ fecal incontinence...for which neurology is consulted.. The clinical picture raises concern for syncope vs seizure. MRI brain shows sequelae a chronic hemorrhagic occipital stroke...which could certainly serve as a seizure focus.. EEG is unremarkable. CUS/CXR - unremarkable Orthostatic vitals are negative UA neg P: Start Keppra 500mg bid Ativan iv prn prolonged seizure of cluster Other medical workup and management per primary Will follow Consultation Date/Type/Reason Admit Date/Time Nov 04, 2018 at 12:48 Type of Consult Neurology Reason for Consultation LOC w/ fecal incontinence Requesting Provider: LAWRENCE LEVI NP Date/Time of Note DATE: 11/06/18 TIME: 16:51 24 HR Interval Summary Free Text/Dictation continues acute care Exam Vital Signs Vitals Vital Signs Date Temp Pulse Resp B/P (MAP) Pulse Ox O2 O2 Flow FiO2 Time Delivery Rate 11/06/18 76 16:35 11/06/18 98.7 18 138/68 99 15:41 (91) 11/05/18 Nasal 03:53 Cannula 11/04/18 2.0 20:10 Intake and Output 11/05/18 11/05/18 11/06/18 1414:59 22:59 06:59 IntakeIntake Total 640 ml 200 ml BalanceBalance 640 ml 200 ml Exam Stable from prior VÍCTOR SALAS Nov 06, 2018 16:54
[2018-11-06] MEDS ORDERED: LEVE-5 PO (17:03)
--- NOTE | 2018-11-06 17:04 | PDOCDIS ---
Discharge Instructions CONDITION [id number] Patient Condition: [id number] Stable HOME CARE INSTRUCTIONS: [id number] Diet Instructions: Soxzr9y Low Fat /Cholesterol ACTIVITY: Divou4Ox Activity Restrictions: Zddnu5r Slowly Increase Activity Rest between Activity FOLLOW UP/APPOINTMENTS Follow-up Plan 1. F/u with your PCP in 1-2 weeks 2. You have been started on new seizure medications, please let your PCP know 3. Review your medication list with your nurse before leaving and if you need new prescriptions please let your nurse know. 4. I have made changes to your home medications and given you new prescription s, please let your primary doctor know as well. 5. Stay compliant with your medications and report any side effects to your PCP or pharmacist. 6. Return to the ER if you have any concerns and cannot reach your doctors or call your insurance company, they usually have a nurse that can help you. ANGELICA ARVIZU Nov 06, 2018 17:04
[2018-11-06] MEDS ORDERED: NITR-58 PO (17:15)
--- NOTE | 2018-11-06 17:39 | DS ---
DATE OF ADMISSION: 11/04/2018 DATE OF DISCHARGE: 11/06/2018 PRESENTING COMPLAINT: Syncopal episode that was unwitnessed. FINAL DIAGNOSES: 1. Syncopal versus new onset seizure episode. - This is thought to have been secondary to new onset seizures. - MRI of the brain did show remote blood degradation products within the left occipital lobe from prior hemorrhagic infarct. Neurology felt that these could be epileptogenic and as such, the patient was started on empiric seizure prophylaxis with Keppra 500 b.i.d. - Other workup included a CT scan of the brain that showed chronic cortical and subcortical white matter infarct in left occipital lobe as well as chronic small vessel ischemia as well as a carotid Doppler that showed no evidence of hemodynamically significant carotid stenosis. - The patient also underwent an EEG that was normal as well as a 2D echocardiogram that showed ejection fraction of 60% with stage I diastolic dysfunction without evidence of intraatrial shunt on bubble study and normal PA systolic pressure. 2. Chronic normocytic anemia: Stable throughout her hospitalization. 3. Dyslipidemia with hypertriglyceridemia and low HDL. The patient is on Lipitor therapy. 4. 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 Interestingly, CT scan of the brain did not show a bleed, but suggested infarct cerebrovascular disease in the left occipital lobe. 5. Hypertension with good control. 6. Diabetes mellitus with hemoglobin A1c of 7.0. The patient was transitioned to an oral insulin regimen which was basal insulin and oral for concern of possible hypoglycemia contributing to her syncopal episode. 7. Subclinical hyperthyroidism. The patient is recommended to have repeat TSH levels in 2 to 3 weeks. 8. The patient is also on chronic pancreatic supplements suggestive of history of chronic pancreatitis for which the source is unclear. CONSULTS ON THE CASE: Neurology, Valerie Salas MD INTERVENTIONS: Summarized above. SHORT HOSPITALIZATION COURSE: Full details are available in the chart for review. In summary, this patient was brought into the emergency room after her daughter had found her at home passed out on the floor after a fall. Apparently, she has been having diarrhea for a few days and was dehydrated and had just used the bathroom and then went back to the living room and passed out there. Unfortunately, this was unwitnessed which was unclear situation surrounding it. She was admitted for syncope workup and findings are as summarized above. Based on MRI findings, neurology did start her on seizure prophylaxis. The patient has a history of thyroidectomy in 1996 and a hysterectomy as well. However, she was noted to have a subclinical hyperthyroidism for which repeat TSH levels are recommended in 2 to 3 weeks. The patient also reported that she has just been started on magnesium supplementation by her primary care doctor. She was found to be hypomagnesemic in the hospital. She was given intravenous magnesium to replace this. As her request, it was okay to stop oral magnesium. Also, her labetalol was discontinued due to too tight control of her blood pressure on her home regimen and at this time, she is doing very well. She is overall in stable condition and is ready for discharge. She was seen by physical therapy for discharge from skilled , but she will have a nursing evaluation at her home by home health at discharge. This plan of care was reviewed in detail with her granddaughter who translated to her. Questions have been answered. Overall, discharge time has been more than 1 hour. DISCHARGE CONDITION: Stable. ACTIVITY: As tolerated. DIET: Recommended diet is 1800-calorie ADA. FOLLOWUP: As per hospital course. DISCHARGE MEDICATIONS: For a complete list, please review the patient's chart. Dictated By: ANGELICA ARVIZU MD BA/NTS Conf#: [id number] DID#: [id number] CC: VALERIE SALAS; SOL BRITTON MD;*EndCC* MTDD
[2018-11-06] MEDS ORDERED: LEVETIRACETAM 500 MG TAB PO SCH (21:00)
== END 2018-11-06 20:27 | disposition home or self-care (01) ==
LOC: E/R 10:59 → 6WM 12:48
PROVIDERS: ADMIT Internal Medicine; ATTEND Family Medicine
DX: R55 Syncope and collapse (principal); I10 Essential (primary) hypertension; E11.9 Type 2 diabetes mellitus without complications; D64.9 Anemia, unspecified; E78.5 Hyperlipidemia, unspecified; E78.1 Pure hyperglyceridemia; E03.9 Hypothyroidism, unspecified; Z79.82 Long term (current) use of aspirin; Z79.4 Long term (current) use of insulin; Z86.73 Personal history of transient ischemic attack (TIA), and cerebral infarction without residual deficits
CPT/HCPCS: 70450; 70551; 71045; 80048; 80061; 80307; 81001; 82550; 82553; 82962; 83036; 83735; 83880; 84100; 84439; 84443; 84484; 85025; 85610; 85730; 93005; 93306; 93880; 95819; 97161; G0378; J1650; J1815; J3475; J7040; 36415; 99285